=== PATIENT | male | born 1965 | race Caucasian/White ===

== ENCOUNTER 2016-09-23 17:02 | Emergency (ER) | payer OTHER ==
[~2016-09-23] VITALS: Ht 175.3 cm; Wt 97.5 kg
[2016-09-23 17:14] VITALS: BP 127/83
--- NOTE | 2016-09-23 17:45 | ED UPPER/LOWER EXTREMITY COMPL ---
History of Present Illness General Chief Complaint: Lower Extremity Problems Stated Complaint: PT IS HAVING A PROBLEM WITH RT KNEE Source: patient, old records Exam Limitations: no limitations Vital Signs & Intake/Output Vital Signs & Intake/Output Vital Signs Date Time Temp Pulse Resp B/P B/P Pulse O2 O2 Flow FiO2 Mean Ox Delivery Rate 09/23 1848 80 09/23 1714 97.7 78 18 127/83 98 Room Air Allergies Coded Allergies: No Known Allergies (09/23/16) Reconcile Medications Calcium Carb/Mag Oxide/Zinc Ox (Ysfhaag-Ukyxymuly-Upzb Caplet) (Unknown Strength ) TABLET (Unknown Dose) PO DAILY SUPPLEMENT (Reported) Cholecalciferol (Vitamin D3) (Unknown Strength) TABLET (Unknown Dose) PO DAILY SUPPLEMENT (Reported) Cyanocobalamin (Vitamin B-12) (Unknown Strength) TABLET (Unknown Dose) PO DAILY SUPPLEMENT (Reported) Flaxseed Oil (Flax Oil) (Unknown Strength) CAPSULE (Unknown Dose) PO DAILY SUPPLEMENT (Reported) Ibuprofen (Advil) 200 MG TABLET 2-4 TAB PO DAILY PRN PAIN/INFLAMMATION ( Reported) Ibuprofen 800 MG TABLET 1 TAB PO TID PAIN Oxycodone HCl/Acetaminophen (Percocet 5-325 MG Tablet) 5 MG-325 MG TABLET 1 TAB PO BID PRN PAIN Sour Rachel Extract (Tart Rachel Extract) (Unknown Strength) CAPSULE (Unknown Dose) PO DAILY SUPPLEMENT (Reported) Triage Note: PT STATES THAT HE WAS OUTSIDE RAKING WHEN HER HEARD A POP IN HIS R KNEE. PT STATES THAT HE IS UNABLE TO AMBULATE NOW. REFUSES MEDS AT TRIAGE Triage Nurses Notes Reviewed? yes Onset: Abrupt Duration: hour(s): (1), constant Timing: recent history Severity: moderate, severe Severity Numbers: 10 Pain/Injury Location: Right: Knee. Modifying Factors: Improves With: rest. Worsens With: movement. Associated Symptoms: swelling HPI: 50-year-old male presents to ER for evaluation with history of gout complaining of severe 10 out of 10 right knee pain is worse with range of motion. He states he was doing yard work when he felt a pop in his knee. He states he since then he sat this constant aching pain for the past 1 hour. Pain is worse with range of motion but at rest he is not taken anything for symptoms. He denies any hip foot or ankle pain no numbness or tingling no other injury. (TA HAGER) Past History Travel History Traveled to [place] past 21 day No Medical History Any Pertinent Medical History? see below for history Neurological: NONE EENT: NONE Cardiovascular: NONE Respiratory: NONE Gastrointestinal: NONE Hepatic: NONE Renal: NONE Musculoskeletal: gout Psychiatric: NONE Endocrine: NONE Blood Disorders: NONE Cancer(s): NONE [employer]/Reproductive: NONE Surgical History Surgical History: none Psychosocial History What is your primary language Brazilian Tobacco Use: Current Daily Use Daily Tobacco Use Amount/Type: =< 4 Cigarettes daily ETOH Use: denies use Illicit Drug Use: denies illicit drug use Family History Hx Contributory? No (TA HAGER) Review of Systems Review of Systems Constitutional: Reports: see HPI. All Other Systems: Reviewed and Negative Comments Review of systems: See HPI, All other systems negative. Constitutional, no chills no fever, no malaise HEENT: no sore throat no congestion, Cardiovascular: No chest pain , no palpitation Skin: no rashes, no change in skin Respiratory: No dyspnea no cough no sputum GI: No nausea no vomiting, no diarrhea : No dysuria Muscle skeletal: joint pain, joint swelling, no back pain, no neck pain, Neurologic: No numbness no headache Psych: No stress n Heme/endocrine: No bruising Immunology: No lymphadenopathy (TA HAGER) Physical Exam Physical Exam General Appearance: well developed/nourished, alert, awake Comments: Well-developed well-nourished patient in no apparent distress. HEENT: Atraumatic, extraocular motion intact Neck: Supple, FROM Back: FROM Cardiovascular: Regular rate and rhythms no murmurs Respiratory: No respiratory distress. Patient speaking in full complete sentences. Breath sounds clear to auscultation bilaterally: NO W/R/R Upper Extremities: full range of motion Hip/Pelvis: Atraumatic/Stable. FROM. No pain with pelvic compression Knee: Atraumatic/stable. Limited range of motion secondary to pain, anterior right knee swelling mild no ecchymosis no erythema no effusion. No laxity. Negative diane/anterior drawer test. Leg: Atraumatic. Nontender. No edema, 5 out of 5 strength in the lower extremity, normal dorsiflexion of great toe bilaterally, gross sensation is intact, patellar tendon reflex 2+ bilaterally. Ankle/Foot: Atraumatic/stable. Skin intact. FROM. No swelling, no effusion. No laxity on exam Pulses: Normal/equal DP/PT pulses bilaterally. Brisk cap refill Neuro: awake, alert, and oriented to person, place and time. There were no obvious focal neurologic abnormalities. Skin: Warm & dry;No appreciable rash on exposed skin Psych: Mood affect normal, normal memory normal judgment. (TA HAGER) Progress Differential Diagnosis: contusion, dislocation, fracture, gout, septic arthritis , sprain, tendon injury Plan of Care: Orders Procedure Date/time Status Durable Medical Equipment 09/24 1755 Active Patient medicated Percocet I discussed with the patient at length all of their results. I had an extensive conversation regarding need for close follow up with their primary care physician this week as well as return precautions. I answered all of their questions, they feel comfortable with the plan and follow-up care. I discussed the medications that they will receive with the patient. I gave them signs and symptoms that could indicate an adverse reaction. I have advised them to limit their activities until they can see how they respond to the medication. (TA HAGER) Diagnostic Imaging: Viewed by Me: Radiology Read. Discussed w/RAD: Radiology Read. Radiology Impression: PATIENT: PHYLICIA DIAS PRESENT AGE: 50 PATIENT ACCOUNT NO: [id number] : 67 LOCATION: [facility] ORDERING PHYSICIAN: IZYZ CHAMPION SERVICE DATE: 09/23/16 EXAM TYPE : RAD - XRY-KNEE COMPLETE RIGHT EXAMINATION: XR KNEE, RIGHT CLINICAL INFORMATION : Right knee injury. Pain. COMPARISON: None TECHNIQUE: Four views of the right knee. FINDINGS: No fracture. No dislocation. No joint effusion. The femoral tibial and the patellofemoral joints are maintained. No soft tissue calcification or calcification of the meniscus. IMPRESSION: No acute abnormality of knee. DICTATED BY: RICKY VERMA MD DATE/TIME DICTATED:09/23/161818 COMPOSITION FLOOR SETTER:SOPHY DATE/TIME TRANSCRIBED:09/23/161818 CONFIDENTIAL, DO NOT COPY WITHOUT APPROPRIATE AUTHORIZATION. <Electronically signed in Other Vendor System> SIGNED BY: RICKY VERMA MD 09/23/161823 (TA HAGER) Departure Departure Time of Disposition: 1827 Disposition: HOME OR SELF CARE Condition: Stable Clinical Impression Primary Impression: Knee sprain Referrals: NAOMI CHARLES,MANUEL PATIENT HAS NO PRIMARY CARE DR (PCP/Family) Additional Instructions: REST, ICE, LEG IMMOBILIZER AT ALL TIMES, CRUTCHES WHEN AMBUALTORY IBUPROFEN 800MG EVERY 8 HOURS, PERCOCET FOR BREAKTHROUGH PAIN-this is a narcotic and highly addictive no driving or drinking alcohol while taking. Crutches when ambulatory. Follow up with [facility] Dr. SALGADO NEXT WEEK IF SYMPTOMS PERSIST. Departure Forms: Customer Survey General Discharge Information Prescriptions: Current Visit Scripts Oxycodone HCl/Acetaminophen (Percocet 5-325 MG Tablet) 1 TAB PO BID PRN PAIN #10 TAB Ibuprofen 1 TAB PO TID #30 TAB (ANAI CHAMPION,TA) PA/BONDING AGENT Co-Sign Statement Statement: ED Attending supervision documentation- [] I saw and evaluated the patient. I have also reviewed all the pertinent lab results and diagnostic results. I agree with the findings and the plan of care as documented in the PA's/BONDING AGENT's documentation. [X] I have reviewed the ED Record and agree with the PA's/BONDING AGENT's documentation. [] Additions or exceptions (if any) to the PAs/BONDING AGENT's note and plan are summarized below: [] (DESHAUN CHARLES,MITZY Kimball)
[2016-09-23] MEDS ORDERED: ADVIL200 M2 PO (18:16)
[2016-09-23] MEDS ORDERED: TART CHERRY E1000 MG PO (18:17)
[2016-09-23] MEDS ORDERED: VITAMIN B-121000 MC3 PO (18:17)
[2016-09-23] MEDS ORDERED: FLAX OIL1000 M1 PO (18:17)
[2016-09-23] MEDS ORDERED: CALCIUM-MAGNES1 EAC3 PO (18:18)
[2016-09-23] MEDS ORDERED: VITAMIN D31000 UNI2 PO (18:18)
--- NOTE | 2016-09-23 18:24 | RADIOLOGY REPORT ---
EXAMINATION: XR KNEE, RIGHT CLINICAL INFORMATION: Right knee injury. Pain. COMPARISON: None TECHNIQUE: Four views of the right knee. FINDINGS: No fracture. No dislocation. No joint effusion. The femoral tibial and the patellofemoral joints are maintained. No soft tissue calcification or calcification of the meniscus. IMPRESSION: No acute abnormality of knee.
[2016-09-23] MEDS ORDERED: PERCOCET 5-3251 EACH PO (18:29)
[2016-09-23] MEDS ORDERED: IBUPROFEN800 M1 PO (18:29)
== END 2016-09-23 18:48 ==
LOC: ERH 17:02
DX: S83.91XA Sprain of unspecified site of right knee, initial encounter (principal); X58.XXXA Exposure to other specified factors, initial encounter; Y93.H2 Activity, gardening and landscaping; Y92.9 Unspecified place or not applicable
CPT/HCPCS: 73562-RT